=== PATIENT | male | born 2005 | race Caucasian/White ===

== ENCOUNTER 2025-06-09 23:21 | Emergency (ER) | payer SELFPAY ==
[2025-06-09] MEDS ORDERED: Boostrix 0.5 ML (Tdap) VIAL (>/=7 yrs of age) ONE (23:36)
[2025-06-10] MEDS ORDERED: Lidocaine 1% (PF) 30 ML VIAL ONE (00:25)
[2025-06-10] MEDS ORDERED: Bacitracin 1 PK ONE (01:04)
== END 2025-06-10 01:12 | disposition home or self-care (01) ==
LOC: ERS 23:21
DX: S61.012A Laceration without foreign body of left thumb without damage to nail, initial encounter (principal); F17.290 Nicotine dependence, other tobacco product, uncomplicated; Z23 Encounter for immunization; W26.8XXA Contact with other sharp object(s), not elsewhere classified, initial encounter; Y93.89 Activity, other specified
CPT/HCPCS: 12001; 90471; 90715